=== PATIENT | male | born 1990 | race Two or more races ===

== ENCOUNTER 2019-10-23 11:00 | Inpatient (IN) | payer MEDICAID, OTHER ==
[~2019-10-23] VITALS: Ht 180.3 cm; Wt 87.4 kg
[2019-10-23] MEDS ORDERED: SODIUM CHLORIDE 0.9% 1,000 ML IVB ONE (11:52)
[2019-10-23] MEDS ORDERED: ONDANSETRON HCL 4 MG/2 ML VIAL IV ONE (12:00)
[2019-10-23 12:11] LABS: Basophils # (auto) 0 uL; Basophils % (auto) 0.2 % (0.0-2.0); Eosinophils # (auto) 0 uL; Hematocrit 45.4 % (41.0-53.0); Hemoglobin 15.7 g/dL (13.5-17.5); Lymphocytes % (auto) 15.6 % (10.0-50.0); Mean Corpuscular Hemoglobin 31.3 pg (28.0-32.0); Mean Corpuscular Hgb Conc. 34.6 g/dL (32.0-36.0); Mean Corpuscular Volume 90.4 fL (80.0-100.0); Monocytes # (auto) 0.5 uL; Monocytes % (auto) 8.3 % (0.0-12.0); Neutrophils # (auto) 4.8 uL; Neutrophils % (auto) 75.9 % (37.0-80.0); Platelet Count (auto) 122 10^3/uL (140-450); Red Blood Cells 5.03 10^6/uL (4.5-5.90); Red Cell Distribution Width 13.1 % (11.8-14.3); White Blood Cell 6.3 10^3/uL (4.4-10.8)
[2019-10-23 12:27] LABS: Albumin 3.4 g/dL (3.4-5.0); BUN/Creatinine Ratio 9.5; Calcium 8.7 mg/dL (8.5-10.1); Potassium 3.6 mmol/L (3.5-5.1)
[2019-10-23 12:29] LABS: Bilirubin, Total 0.6 mg/dL (0.2-1.0); Total Protein 6.9 g/dL (6.4-8.2)
[2019-10-23] MEDS ORDERED: IODIXANOL 320MG/ML 100ML BTL IV ONE (13:59)
[2019-10-23] MEDS ORDERED: TEMAZEPAM 15 MG CAP PO PRN (15:45)
[2019-10-23] MEDS ORDERED: ACETAMINOPHEN 500 MG TAB PO PRN (15:45)
[2019-10-23] MEDS ORDERED: MORPHINE SULF INJ 2 MG/ML SYRINGE 1ML IV PRN (15:45)
[2019-10-23] MEDS ORDERED: ALBUTEROL SULF 2.5 MG/0.5ML(0.5%) NEB SOLN NEB PRN (15:45)
[2019-10-23] MEDS ORDERED: PROMETHAZINE HCL 25 MG/ML 1ML IV PRN (15:45)
[2019-10-23] MEDS ORDERED: NITROGLYCERIN 0.4 MG SL TAB SL PRN (15:45)
[2019-10-23] MEDS ORDERED: LEVOFLOXACIN 500MG 100 ML IV ONE (15:45)
[2019-10-23] MEDS ORDERED: LACTULOSE 20Gm/30ML SOLN PO PRN (15:45)
[2019-10-23] MEDS ORDERED: OSELTAMIVIR 75 MG CAP PO ONE (15:45)
[2019-10-23] MEDS ORDERED: traMADol HCL 50 MG TAB PO PRN (15:45)
[2019-10-23] MEDS: SODIUM CHLORIDE 0.9% 1,000 ML IV SCH (16:26)
[2019-10-23 17:02] LABS: Urine Bacteria NONE SEEN /hpf (None Seen); Urine Blood Negative /uL (Negative); Urine Hyaline Cast FEW /lpf (0 - 2); Urine Mucus FEW (None Seen); Urine Specific Gravity 1.016 (1.001-1.035); Urine WBC 11 /hpf (0 - 3)
--- NOTE | 2019-10-23 17:42 | NUR ---
Telemetry admit from ER [facility] admitted to Telemetry unit after SBAR received. Patient oriented to Latrice Roa, primary RN, unit, room, bed, and unit policies regarding patient care and visiting hours. Patient now on continuous telemetry monitoring, tele box # [id number] and telemetry reading on arrival to unit is SR 76. Patient placed on bedside oxygen, weighed by bedscale and encouraged to call if they need something. All questions and concerns addressed, patient verbalized understanding. Note:
--- NOTE | 2019-10-23 19:30 | NUR ---
OPENING NOTE REPORT RECEIVED FROM DAY SHIFT RN PATIENT IS A/OX4 RESTING IN BED. NO S/S OF DISTRESS OR SOB NOTED AT THIS TIME. PHYSICAL ASSESSMENT DONE-SEE INTERVENTIONS. IV TO LEFT UPPER ARM INFILTRATED, WILL REMOVE AND START NEW LINE. POC DISCUSSED AND ALL QUESTIONS ANSWERED. WILL MONITOR Q1H PRN THROUGHOUT SHIFT, CALL LIGHT WITHIN REACH.
--- NOTE | 2019-10-23 19:44 | NUR ---
IV removal TO LEFT UPPER ARM IV DC'd with clean sterile technique, catheter fully intact. Pressure dressing applied to site. Patient tolerated well.
--- NOTE | 2019-10-23 19:55 | NUR ---
IV insertion IV access obtained, via clean sterile technique by inserting 20 gauge catheter at RIGHT HAND after 1 attempt. IV secured properly. No trauma to site. Patient tolerated well.
--- NOTE | 2019-10-23 19:58 | NUR ---
POSITIVE FOR INFLUENZA TYPE B WILL PAGE HOSPITALIST AND ISOLATE PATIENT PAPER GOODS MACHINE SET UP OPERATOR MADE AWARE
[2019-10-23 20:03] VITALS: BP 102/51
--- NOTE | 2019-10-23 20:15 | NUR ---
HOSPITALIST PAGED RE: POSITIVE INFLUENZA TYPE B STATUS
[2019-10-23] MEDS: OSELTAMIVIR 75 MG CAP PO SCH (21:42)
--- NOTE | 2019-10-23 21:45 | NUR ---
TEMP PATIENT TEMP 101.3F COOLING MEASURES INITIATED AND TYLENOL GIVEN ORDERED BY MD WILL RECHECK AND CONTINUE TO MONITOR
--- NOTE | 2019-10-23 22:19 | NUR ---
Respiratory note: ASSESSED PT FOR PRN MED NEB AT THIS TIME PT SLEEPING AT THIS TIME, NO RESP DISTRESS NOTED, NO TX INDICATED, PULSE OX 91% ON RA, HR 86, RR 18, BILATERAL BS CLEAR.
[2019-10-23 23:02] VITALS: BP 91/43
[2019-10-24] VITALS (8 sets, daily range): BP systolic 96–116; BP diastolic 53–61
[2019-10-24] MEDS: SODIUM CHLORIDE 0.9% 1,000 ML IV SCH ×3 (00:36→08:44)
--- NOTE | 2019-10-24 05:58 | NUR ---
Respiratory note: NO PRN BREATHING TX NEEDED AT THIS TIME. NO S/S OF RESPIRATORY DISTRESS. WILL CONTINUE TO MONITOR PATIENT.
--- NOTE | 2019-10-24 06:51 | NUR ---
CLOSING PATIENT IS SLEEPING. NO S/S OF DISTRESS NOTED. CALL LIGHT WITHIN REACH. WILL ENDORSE CARE TO AM SHIFT RN.
--- NOTE | 2019-10-24 07:40 | NUR ---
Opening Shift Note Assumed care of patient, awake, alert and oriented x4. No S/S of distress/SOB or pain. Instructed on POC and to call for assist PRN. Bed at lowest locked position and call light within reach. Will continue to monitor for changes Q1hr and PRN.
[2019-10-24] MEDS: OSELTAMIVIR 75 MG CAP PO SCH (08:43)
[2019-10-24] MEDS ORDERED: cefTRIAXone 1GM/50ML D5W 50 ML IV SCH (09:00)
[2019-10-24] MEDS ORDERED: AZITHROMYCIN 500MG/ 250ML 250 ML IV SCH (10:00)
[2019-10-24] MEDS ORDERED: ENOXAPARIN SOD 40 MG/0.4 ML SYRINGE SC SCH (10:00)
[2019-10-24] MEDS ORDERED: TAMIFLU PO ×2 (16:18→16:38)
[2019-10-24] MEDS ORDERED: LEVO750T64 PO ×2 (16:18→16:38)
--- NOTE | 2019-10-24 18:25 | NUR ---
Discharge instructions given as ordered. Encourage to follow up with PMD as instructed. All questions and concerns addressed. Patient verbalized understanding. Medication reconciliation form completed and copy given to patient. Home medications held in Pharmacy returned to patient, and needed vaccines given. IV removed with catheter intact, pressure dressing applied. Telemetry unit returned to ICU. Patient taken to vehicle via wheelchair with all personal belongings, accompanied by staff and family member. No distress noted at time of departure. Addendum: 10/24/19 at 1832 by Patricia Tracy RN no vaccines were given during this visit.
== END 2019-10-24 18:27 | disposition home or self-care (01) | DRG 194 ==
LOC: ER 11:00 → TELE 11:01 → TELE-EAST 17:45
PROVIDERS: ADMIT Internal Medicine; ATTEND Internal Medicine
DX: J10.00 Influenza due to other identified influenza virus with unspecified type of pneumonia (principal); N17.9 Acute kidney failure, unspecified; I27.20 Pulmonary hypertension, unspecified
CPT/HCPCS: 36415; 71260; 74177; 80053; 81001; 83605; 85025; 87040; 87804; 93005; 93306; 96361; 96365; 96375; G0378; J0696; J1956; J2405; Q9967